=== PATIENT | male | born 1995 ===

== ENCOUNTER 2017-06-19 05:15 | Emergency (ER) | payer MEDICAID ==
[2017-06-19 05:46] VITALS: TEMP 98.4
[2017-06-19] MEDS ORDERED: Tdap Vaccine 0.5 ml Vial (10-64 yrs) IM ONE (06:25)
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
--- NOTE | 2017-06-19 07:32 | ED PDOC ---
- Laboratory Results Result Diagrams: 06/19/17 10:06 06/19/17 10:06 - ECG O2 Sat by Pulse Oximetry: 99 (RA) Medical Decision Making Medical Decision Making: Time: 0700 - Patient signed to me by Dr. Thomas, pending clinical sobriety Time: 1006 Plan: -- CMP -- Troponin I -- CBC with differentials -- Drug Screen, Urine Time: 1026 HAND X-RAY RESULTS FINDINGS: BONES: No definite fracture. JOINTS: Flexion of the digits at the level of the proximal phalangeal joints. SOFT TISSUES: Normal. OTHER FINDINGS: None. IMPRESSION: Limited evaluation due to flexion of the digits at the level of the proximal interphalangeal joints. No demonstrated fracture or dislocation within the study limitations. Scribe Attestation: Documented by Merlyn Piedra, acting as a scribe for Dr. Riley MD. Provider Scribe Attestation: All medical record entries made by the Scribe were at my direction and personally dictated by me. I have reviewed the chart and agree that the record accurately reflects my personal performance of the history, physical exam, medical decision making, and the department course for this patient. I have also personally directed, reviewed, and agree with the discharge instructions and disposition. 8:15a - patient sedated but tachycardic. non-compliant with attempt to insert heplock and further eval. Will give Haldol 5 mg IM and attempt to get blood for labs and to hydrate with IVF. 2.00p - patient stable since this morning. labs normal. HR improved but still above normal. Will d/c Disposition Doctor Will See Patient In The: Office Counseled Patient/Family Regarding: Diagnosis, Need For Followup - Clinical Impression Clinical Impression: Alcohol abuse with intoxication - POA Present On Arrival: Falls Or Trauma - Disposition Referrals: [facility] [Outside] [facility] [Outside] Disposition: Routine/Home Disposition Time: 14:36 Instructions: Alcohol Abuse and Alcoholism (DC) Forms: [employer] ([place])
[2017-06-19] MEDS ORDERED: Sodium Chloride 0.9% 1,000 ML IV STA (08:22)
[2017-06-19 09:23] LABS: BARBITURATES, UR NEGATIVE (NEGATIVE); BENZODIAZEPINES, UR NEGATIVE (NEGATIVE); OPIATES, UR NEGATIVE (NEGATIVE); PHENCYCLIDINE, UR NEGATIVE (NEGATIVE)
[2017-06-19 10:10] LABS: BASO # 0.1 K/uL (0.0-0.2); BASO % 0.5 % (0.0-2.0); EOS % 0.2 % (0.0-4.0); HEMOGLOBIN 15.3 g/dL (12.0-18.0); LYMPH # 2.5 K/uL (1.0-4.3); LYMPH % 20.8 % (20.0-40.0); MEAN CELL VOLUME 81.6 fl (80.0-94.0); MEAN CORPUSCULAR HEMOGLOBIN 27.9 pg (27.0-31.0); MEAN CORPUSCULAR HGB CONC 34.2 g/dL (33.0-37.0); MEAN PLATELET VOLUME 9.7 fl (7.2-11.7); MONO # 0.8 K/uL (0.0-0.8); MONO % 6.4 % (0.0-10.0); NEUT # 8.6 K/uL (1.8-7.0); NEUT % 72.1 % (50.0-75.0); NRBC % 0.2 % (0.0-0.0); RBC 5.48 Mil/uL (4.40-5.90); WHITE BLOOD COUNT 11.9 K/uL (4.8-10.8)
[2017-06-19 10:19] LABS: ALB/GLOB RATIO 1.3 (1.0-2.1); ALBUMIN 4.9 g/dL (3.5-5.0); ALT/SGPT 57 U/L (21-72); AST/SGOT 42 U/L (17-59); BLOOD UREA NITROGEN 13 mg/dl (9-20); CALCIUM 9.5 mg/dL (8.4-10.2); GFR AFRICAN-AMERICAN > 60; GFR NON-AFRICAN AMERICAN > 60
--- NOTE | 2017-06-19 10:27 | RAD ---
PROCEDURE: Right Hand Radiographs. HISTORY: hand injury COMPARISON: None. FINDINGS: BONES: No definite fracture. JOINTS: Flexion of the digits at the level of the proximal phalangeal joints. SOFT TISSUES: Normal. OTHER FINDINGS: None. IMPRESSION: Limited evaluation due to flexion of the digits at the level of the proximal interphalangeal joints. No demonstrated fracture or dislocation within the study limitations.
[2017-06-19 10:31] VITALS: O2SAT 99
[2017-06-19 15:13] VITALS: BP 119/76; PULSE 97; RESP 18
== END 2017-06-19 16:51 | disposition home or self-care (01) ==
LOC: H.ER 05:15
DX: F10.129 Alcohol abuse with intoxication, unspecified (principal); R00.0 Tachycardia, unspecified; S69.91XA Unspecified injury of right wrist, hand and finger(s), initial encounter; W19.XXXA Unspecified fall, initial encounter; Y92.89 Other specified places as the place of occurrence of the external cause
CPT/HCPCS: 73130; 80053; 80320; 80324; 80345; 80346; 80349; 80353; 80358; 80361; 83992; 84484; 85025; 96372; 99285; J1630; J2060; J7040